=== PATIENT | male | born 1990 | race Caucasian/White ===

== ENCOUNTER 2017-10-23 08:30 | Day surgery (SDC) | payer OTHER ==
[~2017-10-23] VITALS: Ht 182.9 cm; Wt 85.7 kg
[2017-10-23] MEDS ORDERED: DEXAMETHASONE SOD PHOSPHATE 4 MG/ML VIAL IVP ONE (09:35)
[2017-10-23] MEDS ORDERED: MIDAZOLAM HCL 5 MG/5 ML VIAL IVP ONE (09:35)
[2017-10-23] MEDS ORDERED: CEFAZOLIN 1 GM IVPB PREMIX 50 ML IV ONE (09:35)
[2017-10-23] MEDS ORDERED: SEVOFLURANE 15 MIN GAS INH ONE (09:35)
[2017-10-23] MEDS ORDERED: fentaNYL CITRATE/PF 100 MCG/2 ML AMP IVP ONE (09:35)
[2017-10-23] MEDS ORDERED: ONDANSETRON HCL 4 MG/2 ML VIAL IVP ONE (09:35)
[2017-10-23] MEDS ORDERED: ONDANSETRON HCL 4 MG/2 ML VIAL IVP PRN (10:45)
[2017-10-23] MEDS ORDERED: fentaNYL CITRATE/PF 100 MCG/2 ML AMP IVP PRN ×2 (10:45)
[2017-10-23] MEDS ORDERED: HYDROcodone/ACETAMIN 5-325 MG TAB (NORCO/ VICODIN) PO PRN (12:00)
[2017-10-23] MEDS: hydrALAZINE HCL 20 MG/ML VIAL ONE ×2 (12:34→12:46)
[2017-10-23] MEDS: fentaNYL CITRATE/PF 100 MCG/2 ML AMP ONE ×2 (12:45→13:03)
[2017-10-23 13:38] VITALS: BP_SYST 153
[2017-10-23] MEDS ORDERED: HYDROcodone/ACETAMIN 5-325 MG TAB (NORCO/ VICODIN) ONE (14:29)
== END 2017-10-23 15:30 | disposition home or self-care (01) ==
LOC: SMU 08:30 → SDS 08:30 → EDSEX 11:30 → SDS 15:30
PROVIDERS: ATTEND Otolaryngology Plastic Surgery within the Head & Neck
DX: J34.2 Deviated nasal septum (principal); J32.9 Chronic sinusitis, unspecified; J34.3 Hypertrophy of nasal turbinates
CPT/HCPCS: 30140; 30520; 30999; 31255; 31267; 88305; A4649; J0360; J0690; J1100; J2250; J2405; J3010; J7120